=== PATIENT | male | born 1990 | race Caucasian/White ===

== ENCOUNTER 2016-09-09 01:12 | Emergency (ER) | payer OTHER ==
[~2016-09-09 01:12] MED LIST: CELEXA20 MG
== END 2016-09-09 01:28 | disposition home or self-care (01) ==
LOC: SED 01:12
DX: J02.9 Acute pharyngitis, unspecified (principal); J04.0 Acute laryngitis; K14.0 Glossitis
CPT/HCPCS: 99282